=== PATIENT | female | born 1995 | race Caucasian/White ===

== ENCOUNTER 2016-07-18 16:04 | Emergency (ER) | payer MEDICAID ==
[2016-07-18 16:04] VITALS: BMI 28.5
--- NOTE | 2016-07-18 17:12 | ED PDOC ---
"Arrival/HPI - General Time Seen by Provider: 07/18/16 17:01 Historian: Patient, Parent - History of Present Illness Narrative History of Present Illness (Text): 07/18/16 17:08 20 y/o female, no pmh, nkda, lt. sided abdominal pain x 1 day. Sharp abdominal pain started this morning, non specific, more on the lt. sided abdominal and epigastric region, multiple diarrhea yesterday and today with no blood total average 2-3 episodes/day, admits nausea and vomitted 4 times, no rash, no fever or chills, no chest pain or shortness of breath, no numbness or tingling, no other medical or psychological complaints Past Medical History - Provider Review Nursing Documentation Reviewed: Yes - Infectious Disease Hx of Infectious Diseases: None - Pulmonary Hx Asthma: Yes - Psychiatric Hx Depression: Yes Hx Emotional Abuse: No Hx Physical Abuse: No Hx Substance Use: No - Past Surgical History Past Surgical History: No Previous - Anesthesia Hx Anesthesia: No Hx Anesthesia Reactions: No - Suicidal Assessment Feels Threatened In Home Enviroment: No Family/Social History - Physician Review Nursing Documentation Reviewed: Yes Family/Social History: Unknown Family HX Smoking Status: Never Smoked Hx Alcohol Use: No Hx Substance Use: No Hx Substance Use Treatment: No Allergies/Home Meds Allergies/Adverse Reactions: Allergies metoclopramide HCl [From Reglan] Adverse Reaction (Verified 07/18/16 17:08) DIZZINESS Home Medications: Home Meds Medication Instructions Recorded Confirmed Ethinyl Estradiol/[place] 1 tab PO DAILY 10/25/13 07/18/16 [Lutera 0.02 mg-0.1 mg] Review of Systems - Physician Review All systems were reviewed & negative as marked: Yes - Review of Systems Constitutional: absent: Fatigue, Fevers Eyes: absent: Vision Changes ENT: absent: Hearing Changes, Tinnitus, TMJ Pain, Voice Changes, Sore Throat, Rhinorrhea, Epistaxis, Sinus Congestion Respiratory: absent: Cough Cardiovascular: absent: Chest Pain, Palpitations, Edema, Calf Pain, ALEXANDRE, Orthopnea, Syncope Gastrointestinal: Abdominal Pain, Nausea, Vomiting Musculoskeletal: absent: Arthralgias, Back Pain, Neck Pain, Joint Swelling, Myalgias Skin: absent: Rash, Pruritis Neurological: absent: Headache, Dizziness, Focal Weakness, Gait Changes, Speech Changes, Facial Droop, Disequilibrium, Seizure Hemo/Lymphatic: absent: Adenopathy Psychiatric: absent: Anxiety, Depression, Suicidal Ideation Physical Exam Vital Signs Temp Pulse Resp BP Pulse Ox 07/18/16 16:04 98.6 F 112 H 19 120/69 100 - Systems Exam Head: Present: Atraumatic, Normocephalic Pupils: Present: PERRL Extroacular Muscles: Present: EOMI Conjunctiva: Present: Normal Mouth: Present: Moist Mucous Membranes Neck: Present: Normal Range of Motion Respiratory/Chest: Present: Clear to Auscultation, Good Air Exchange. No: Respiratory Distress, Accessory Muscle Use Cardiovascular: Present: Regular Rate and Rhythm, Normal S1, S2. No: Murmurs Abdomen: Present: Tenderness (+ttp on the epigastric and lt. sided abdominal region. ), Normal Bowel Sounds. No: Distention, Peritoneal Signs, Rebound, Guarding Back: Present: Normal Inspection. No: CVA Tenderness, Midline Tenderness, Paraspinal Tenderness Upper Extremity: Present: Normal Inspection. No: Cyanosis, Edema Lower Extremity: Present: Normal Inspection. No: Edema Neurological: Present: GCS=15, Speech Normal, Motor Func Grossly Intact, Gait Normal, Memory Normal Skin: Present: Warm, Dry, Normal Color. No: Rashes Psychiatric: Present: Alert, Oriented x 3, Normal Insight, Normal Concentration Medical Decision Making ED Course and Treatment: 07/18/16 17:13 -labs/ua/lipase -CT abdomen and pelvis -transvaginal sonogram -IVF/zofran/pepcid/toradol -Observe and reassess 07/18/16 20:35 -CT abdomen show: colon thickening with possible colitis which the patient has diarrhea for the past 2 days. Stool culture and c.diff ordered. -Transvaginal sonogram show: multiple follicles with normal blood flow on the bilateral ovaries. -Labs are non-significant with no elevation of wbc. -Cipro and flagyl ordered with the side effect explained to the patient including the possible achilles tendon rupture which the patient is awared and willing to accept the risk. -Pt. feels much better, clinically stable to be discharge home. -I discussed all the labs/radiology results with the patient. -Discharge home with ciprofloxacin, flagyl, pepcid, zofran, ibuprofen, avoid dairy products until symptoms resolved, no gym or exercise while taking the antibiotic, follow up with your own pmd and GI/obgyn within 2 days, return to the ER for any new or worsening signs or symptoms. - Lab Interpretations Lab Results: 07/18/16 17:35 07/18/16 17:35 Lab Results 07/18/16 17:35: WBC 9.8, RBC 5.35, Hgb 14.7, Hct 44.1, MCV 82.4, MCH 27.5, MCHC 33.3, RDW 14.5, Plt Count 318, MPV 9.9, Gran % 90.9 H, Lymph % (Auto) 6.1 L, [place] % (Auto) 2.6, Eos % (Auto) 0.3 L, Baso % (Auto) 0.1, Gran # 8.91 H, Lymph # 0.6 L, [place] # 0.3, Eos # 0.0, Baso # 0.01, Sodium 140, Potassium 4.1, Chloride 100, Carbon Dioxide 25, Anion Gap 19, BUN 11, Creatinine 0.7, Est GFR ( Amer) > 60, Est GFR (Non-Af Amer) > 60, Random Glucose 102, Calcium 9.4 , Total Bilirubin 0.6, AST 34, ALT 21, Alkaline Phosphatase 66, Total Protein 8.6 H, Albumin 4.5, Globulin 4.2, Albumin/Globulin Ratio 1.1, Lipase 41, Urine Color Yellow, Urine Appearance Clear, Urine pH 6.0, Ur Specific [place] >= 1.030 , Urine Protein Negative, Urine Glucose (UA) Negative, Urine Ketones Trace H, Urine Blood Trace-intact H, Urine Nitrate Negative, Urine Bilirubin Negative, Urine Urobilinogen 0.2, Ur Leukocyte Esterase Negative, Urine RBC 0 - 2, Urine WBC Negative, Ur Epithelial Cells 10 - 12, Urine Other Mucus I have reviewed the lab results: Yes Interpretation: No clinic. lab abnormalty - RAD Interpretation Radiology Orders: 07/18/16 17:09 ABD & PELVIS IV CONTRAST ONLY [CT] Stat TRANSVAGINAL [US] Stat CT Abdomen and Pelvis: ABDOMEN: Liver: Unremarkable. No mass. Gallbladder and bile ducts: Unremarkable. No calcified stones. No ductal dilation. Pancreas: Unremarkable. No ductal dilation. Spleen: Unremarkable. No splenomegaly. Adrenals: Unremarkable. No mass. Kidneys and ureters: Unremarkable. No solid mass. No hydronephrosis. Stomach and bowel: Apparent thickening of the transverse colon, though exaggerated by underdistention. Correlate clinically for possible infectious/inflammatory colitis. Correlate clinically. Appendix: No findings to suggest acute appendicitis. CARMELO PACHECO | Preliminary Radiology Report PAYMENT COLLECTOR (QA) DISCREPANCY? If there is a discrepancy between the preliminary and final interpretation, please notify [facility] via [email or web address]. If you do not have access to our QA portal, call our QA team at [phone] CONFIDENTIALITY STATEMENT This report is intended only for the use of the referring physician, and only in accordance with law, If you received this in error, call [phone] Page 2 of 2 PELVIS: Bladder: Unremarkable. Reproductive: Unremarkable as visualized. ABDOMEN and PELVIS: Intraperitoneal space: Trace free fluid in the pelvis. Bones/joints: No acute fracture. No dislocation. Soft tissues: Unremarkable. Vasculature: Unremarkable. No abdominal aortic aneurysm. Lymph nodes: Unremarkable. No enlarged lymph nodes. IMPRESSION: 1. Apparent thickening of the transverse colon, though exaggerated by underdistention. Correlate clinically for possible infectious/inflammatory colitis. Correlate clinically. 2. Trace free fluid in the pelvis. Thank you for allowing us to participate in the care of your patient. 07/18/2016 7:50 PM Eastern Time ([place] & [place]) Transvaginal Sonogram: FINDINGS: Uterus: Transvaginal technique limits evaluation of uterine size. Uterus measures approximately 4 x 2.4 x 3 cm. Endometrium measures approximately 2.3 mm in width Left ovary: Left ovary measures approximately 2.47 x 1.35 x 1.49 cm.There are multiple small follicles. There is expected blood flow on Doppler imaging no Right ovary: Right ovary measures approximately 2.09 x 1.24 x 1.51 cm.There are multiple small follicles. There is expected blood flow on Doppler imaging Fluid: There is no free fluid. IMPRESSION: Normal transvaginal pelvic ultrasound Thank you for allowing us to participate in the care of your patient. Dictated and Authenticated by: Colleen Wilson MD 07/18/2016 8:21 PM Eastern Time ([place] & [place]) Cantilever Crane Operator: Radiologist - Medication Orders Current Medication Orders: Discontinued Medications Famotidine (Pepcid) 20 mg IVP STAT STA Stop: 07/18/16 17:10 Last Admin: 07/18/16 17:35 Dose: 20 MG IVP Administration Document 07/18/16 17:35 SE (Rec: 07/18/16 17:35 [id number] Charges for Administration # of IVP Administrations 1 Iohexol (Omnipaque 350 100 Ml) Confirm Administered Dose 350 mg .ROUTE .K-MED ONE Stop: 07/18/16 18:28 Ketorolac Tromethamine (Toradol) 30 mg IVP STAT STA Stop: 07/18/16 17:10 Last Admin: 07/18/16 17:35 Dose: 30 MG IVP Administration Document 07/18/16 17:35 SE (Rec: 07/18/16 17:35 [id number] Charges for Administration # of IVP Administrations 1 Ondansetron HCl (Zofran Inj) 4 mg IVP STAT STA Stop: 07/18/16 17:10 Last Admin: 07/18/16 17:35 Dose: 4 MG IVP Administration Document 07/18/16 17:35 SE (Rec: 07/18/16 17:35 [id number] Charges for Administration # of IVP Administrations 1 - PA / KETTLE GIRL / Resident Statement MD/DO has reviewed & agrees with the documentation as recorded. Disposition/Present on Arrival - Present on Arrival Any Indicators Present on Arrival: No History of DVT/PE: No History of Uncontrolled Diabetes: No Urinary Catheter: No History of Decub. Ulcer: No History Surgical Site Infection Following: None - Disposition Have Diagnosis and Disposition been Completed?: Yes Diagnosis: Ovarian cyst, Colitis Disposition: HOME/ ROUTINE Disposition Time: 20:42 Patient Plan: Discharge Condition: IMPROVED Additional Instructions: Discharge home with ciprofloxacin, flagyl, pepcid, zofran, ibuprofen, avoid dairy products until symptoms resolved, no gym or exercise while taking the antibiotic, follow up with your own pmd and GI/obgyn within 2 days, return to the ER for any new or worsening signs or symptoms. Prescriptions: Ciprofloxacin/Ciprofloxa HCl [Ciprofloxacin] 500 mg PO BID #14 tab metroNIDAZOLE [Flagyl] 500 mg PO BID #14 tab Ibuprofen [Motrin Tab] 800 mg PO TID PRN #21 tab PRN Reason: Other Famotidine [Pepcid] 20 mg PO BID PRN #18 tab PRN Reason: Other Referrals: Eneida Alston MD [Primary Care Provider] - Follow up with primary Alfredito Mccauley MD, MD [Medical Doctor] - Follow up with primary Anant Nickerson MD [Staff Provider] - Follow up with primary Forms: WORK NOTE"
[2016-07-18 17:36] VITALS: BP 120/69; PULSE 112; RESP 19; TEMP 98.6; O2SAT 100
[2016-07-18 17:46] LABS: ADD MANUAL DIFF? NO
[2016-07-18 17:57] LABS: BASO # 0.01 K/mm3 (0.0-2.0); BASO % 0.1 % (0.0-3.0); EOS % 0.3 % (1.5-5.0); GRAN # 8.91 (1.4-6.5); GRAN % 90.9 % (50.0-68.0); HEMATOCRIT 44.1 % (36.0-48.0); LYMPH # 0.6 (1.2-3.4); LYMPH % 6.1 % (22.0-35.0); MEAN CELL VOLUME 82.4 fL (80.0-105.0); MEAN CORPUSCULAR HEMOGLOBIN 27.5 pg (25.0-35.0); MEAN CORPUSCULAR HGB CONC 33.3 g/dl (31.0-37.0); MEAN PLATELET VOLUME 9.9 fl (7.0-11.0); MONO # 0.3 (0.1-0.6); MONO % 2.6 % (1.0-6.0); PLATELET COUNT 318 10^3/uL (120.0-450.0); RED CELL DISTRIBUTION WIDTH 14.5 % (11.5-14.5); WHITE BLOOD COUNT 9.8 10^3/ul (4.5-11.0)
[2016-07-18 18:01] LABS: ALB/GLOB RATIO 1.1 (1.1-1.8); ALKALINE PHOSPHATASE 66 U/L (38-133); ALT/SGPT 21 U/L (7-56); AST/SGOT 34 U/L (15-39); BILIRUBIN,TOTAL 0.6 mg/dL (0.2-1.3); BLOOD UREA NITROGEN 11 mg/dL (7-21); CALCIUM 9.4 mg/dL (8.4-10.5); CARBON DIOXIDE 25 mmol/L (21-33); CHLORIDE 100 mmol/L (98-107); GFR AFRICAN-AMERICAN > 60; GLUCOSE,RANDOM 102 mg/dL (70-110); LIPASE 41 U/L (23-300); POTASSIUM 4.1 mmol/L (3.6-5.0); SODIUM 140 mmol/L (132-148); TOTAL PROTEIN 8.6 g/dL (5.8-8.3)
[2016-07-18 18:04] LABS: URINE APPEARANCE CLEAR (CLEAR); URINE BILIRUBIN NEGATIVE (NEGATIVE); URINE BLOOD TRACE-INTACT (NEGATIVE); URINE COLOR YELLOW (YELLOW); URINE GLUCOSE (UA) NEGATIVE (NEGATIVE); URINE KETONE TRACE mg/dL (NEGATIVE); URINE LEUKOCYTE ESTERASE NEGATIVE Leu/uL (NEGATIVE); URINE PROTEIN NEGATIVE mg/dL (<30 mg/dL); URINE UROBILINOGEN 0.2 E.U./dL (<1 E.U./dL)
[2016-07-18 18:08] LABS: URINE RBC 0 - 2 /hpf (0-2)
[2016-07-18 18:09] LABS: URINE WBC NEGATIVE /hpf (0-6)
[2016-07-18] MEDS ORDERED: Iohexol 350 MG/100 ML VIAL ONE (18:27)
--- NOTE | 2016-07-18 20:21 | US ---
EXAM: US Pelvis, Transvaginal. CLINICAL HISTORY: 20 years old, female; Pain; Abdominal pain; Lower abdomen; Additional info: Evaluate both ovaries for any cyst, abd pain TECHNIQUE: Real-time transvaginal pelvic ultrasound (complete) with image documentation. Transvaginal imaging was used for better evaluation of the endometrium and adnexa. EXAM DATE/TIME: 07/18/2016 5:09 PM COMPARISON: There are no prior studies for comparison. FINDINGS: Uterus: Transvaginal technique limits evaluation of uterine size. Uterus measures approximately 4 x 2.4 x 3 cm. Endometrium measures approximately 2.3 mm in width Left ovary: Left ovary measures approximately 2.47 x 1.35 x 1.49 cm.There are multiple small follicles. There is expected blood flow on Doppler imaging no Right ovary: Right ovary measures approximately 2.09 x 1.24 x 1.51 cm.There are multiple small follicles. There is expected blood flow on Doppler imaging Fluid: There is no free fluid. IMPRESSION: Normal transvaginal pelvic ultrasound
--- NOTE | 2016-07-19 07:10 | CT ---
PROCEDURE: CT Abdomen and Pelvis with contrast HISTORY: Left-sided abdominal pain. Vomiting. By history, negative test (concurrent with this examination). COMPARISON: July 18, 2016. Pelvic ultrasound. Summary of findings on the comparison examination: Normal transvaginal pelvic ultrasound TECHNIQUE: Contrast dose: 100 cc Omnipaque 350 Radiation dose: Total exam DLP = 432.12 mGy-cm. FINDINGS: LOWER THORAX: Unremarkable. LIVER: Unremarkable. No gross lesion or ductal dilatation. GALLBLADDER AND BILE DUCTS: Unremarkable. PANCREAS: Unremarkable. No gross lesion or ductal dilatation. SPLEEN: Unremarkable. ADRENALS: Unremarkable. No mass. KIDNEYS AND URETERS: Unremarkable. No hydronephrosis. No solid mass. VASCULATURE: Unremarkable. No aortic aneurysm. BOWEL: Colitis primarily affecting the ascending and transverse colon. APPENDIX: Normal appendix. PERITONEUM: Unremarkable. No free fluid. No free air. LYMPH NODES: Unremarkable. No enlarged lymph nodes. BLADDER: Unremarkable. REPRODUCTIVE: Unremarkable. BONES: No acute fracture. OTHER FINDINGS: None. IMPRESSION: Acute colitis affecting, primarily ascending and transverse colon. No evidence of bowel obstruction. Concordant results (preliminary interpretation) provided by [employer]. Procedure Completed: 19:20. Preliminary ([facility]) Report: Dictated and Authenticated: 19:50. Final Interpretation: 07:08. July 19, 2016.
== END 2016-07-18 21:04 | disposition home or self-care (01) ==
LOC: ED 16:04
DX: N83.209 Unspecified ovarian cyst, unspecified side (principal); K52.9 Noninfective gastroenteritis and colitis, unspecified
CPT/HCPCS: 74177; 76830; 80053; 81001; 83690; 85025; 96374; 96375; 99284; J1885; J2405; Q9967